=== PATIENT | male | born 1970 | race Caucasian/White ===

== ENCOUNTER 2018-06-16 21:02 | Emergency (ER) | payer MEDICAID ==
[~2018-06-16] VITALS: Ht 170.2 cm; Wt 61.2 kg
[2018-06-16] MEDS ORDERED: MEPERIDINE HCL (25 MG/ML) 1ML VIAL IM ONE (23:45)
[2018-06-16] MEDS ORDERED: ONDANSETRON ODT 4 MG TAB PO ONE (23:45)
[2018-06-17 00:07] VITALS: BP 110/68
== END 2018-06-17 00:28 | disposition home or self-care (01) ==
LOC: ER 21:04
DX: M54.16 Radiculopathy, lumbar region (principal); Z88.0 Allergy status to penicillin
CPT/HCPCS: 72100; 96372; 99283; J2175; Q0162